=== PATIENT | female | born 1945 | race Caucasian/White ===

== ENCOUNTER → 2016-11-09 | Day surgery (SDC) | payer MEDICARE, OTHER ==
[~2016-11-09] VITALS: Ht 170.2 cm; Wt 77.1 kg
[~2016-11-09] MED LIST: 0.9% Sodium Chloride 1,000 ML IV SCH; CHOL100043 PO; CYAN500 PO; MULT-1018 PO; OMEG500C PO; Sodium Chloride LOK Flush 10 mL Syringe IV PRN; fentaNYL-PF 50 mCg/mL 2 mL Inj IVPUSH PRN
[2016-11-09 12:55] VITALS: BP 155/76; PULSE 68; RESP 16; O2SAT 97
[2016-11-09 13:52] VITALS: BP 92/50; PULSE 63; RESP 16; O2SAT 95
[2016-11-09 14:02] VITALS: BP 113/48; PULSE 66; RESP 16; O2SAT 96
[2016-11-09 14:10] VITALS: BP 124/67; PULSE 63; RESP 16; O2SAT 96
--- NOTE | 2016-11-09 14:15 | ENDO ---
[address] [address] ENDOSCOPY PROCEDURE PATIENT: TYLER APARICIO : 1945 MR#: [id number] ADMIT: 11/09/2016 JOB ID: [id number] DATE: 11/09/2016 PROCEDURE: Colonoscopy. INDICATION: Patient with a history of colon polyps. The patient's ASA classification is 2. Mallampati score is 2. MEDICATIONS: 1. Versed 4 mg. 2. Fentanyl 100 mcg. INSTRUMENT USED: PCF H 180 AL. PREPARATION QUALITY: Was fair. PROCEDURE DETAILS: After informed consent was obtained, the patient was brought into the GI suite, where she was placed on oxygen via nasal cannula and monitored with continuous pulse oximeter, telemetry and blood pressure monitoring. A time-out was performed. Then, she was placed in the left lateral decubitus position and medications were administered for sedation. A digital rectal examination was performed, which was unremarkable. Colonoscope was then inserted into the rectum and advanced under direct visualization to the cecum, which identified by the presence of the ileocecal valve and appendiceal orifice. Once the cecum was reached, the colonoscope was withdrawn back to the rectum and the mucosa and lumen were examined. In the rectum, retroflexion was performed. Following retroflexion, remaining air in the rectum was suctioned, and the procedure was completed. FINDINGS: 1. In the cecum there were two polyps, the larger polyp measured approximately 3-4 mm and was removed with a cold snare. The smaller polyp was diminutive. It was removed with cold biopsy forceps. 2. In the descending colon, there was an approximately 4 mm sessile polyp that was removed with a cold snare. 3. Scattered diverticula were seen throughout the left side of the colon. IMPRESSION: 1. Two cecal polyps. 2. Descending colon polyp. 3. Left-sided diverticulosis. RECOMMENDATIONS: 1. Repeat colonoscopy in two years. 2. Fiber rich diet. 3. Followup in GI clinic as needed. COMPLICATIONS: None. ESTIMATED BLOOD LOSS: Less than 5 mL.
--- NOTE | 2016-11-17 11:26 | PATH ---
SURGICAL PATHOLOGY Attending Physician:Diana Garcia CASE STATUS: Signed Out PATIENT NAME: TYLER APARICIO PID: [id number] : 1945 DATE COLLECTED:11/09/2016 00:00 SPECIMEN: 1: Colon, Polyp 2: Colon, Polyp CLINICAL HISTORY: 1). DESCENDING COLON POLYP 2). CECUM POLYPS X2 FINAL DIAGNOSIS: 1. Descending Colon Polyp, Polypectomy: Hyperplastic polyp. 2. Cecal Polyps x2, Polypectomy and Biopsy: Sessile serrated adenoma (two of five pieces). Tubular adenoma (one of five pieces). ICD10: D12.0 GROSS DESCRIPTION: The specimen is received in two formalin filled containers labeled with the patient's name. 1). The specimen is labeled "descending colon polyp" and consists of a 0.3 x 0.2 x 0.2 CM portion of tissue which is entirely submitted in cassette 1A. 2). The specimen is labeled "cecum polyp" and consists of 4 portions of tissue which aggregate to 0.3 x 0.3 x 0.2 CM. The specimen is entirely submitted in cassette 2A. 11/11/2016[place] ICD-9 CODES: CPT CODES: 1: 16311 2: 50894 Electronically Signed Out Ricardo Tripathi MD, Ph.D. [facility] [address], [place] [address] Technical component performed at [facility], [address] [place] [address] Ave[address], [place], [address]
== END | disposition home or self-care (01) ==
LOC: END 01:22
PROVIDERS: ATTEND Internal Medicine Gastroenterology
DX: Z12.11 Encounter for screening for malignant neoplasm of colon (principal); D12.0 Benign neoplasm of cecum; K63.5 Polyp of colon; K57.30 Diverticulosis of large intestine without perforation or abscess without bleeding; Z86.010 Personal history of colon polyps
CPT/HCPCS: 45380; 45385; 88305; 99153; G0500; J2250; J3010; J7030